=== PATIENT | male | born 1955 | race Caucasian/White ===

== ENCOUNTER 2016-09-05 13:24 | Emergency (ER) | payer OTHER ==
--- NOTE | 2016-09-05 15:27 | MRI REPORT ---
HISTORY: Low back pain, fever and urinary urgency. COMPARISON: None TECHNIQUE: Sagittal T1, sagittal T2, sagittal inversion recovery, axial T1 and axial T2 FINDINGS: There is 1 mm L4-L5 retrolisthesis and 2 mm L5-S1 anterolisthesis. There is no acute vertebral body f racture. There are chronic mild displaced bilateral L5 pars interarticularis defects. There are benig n hemangioma is in the L2 and L3 vertebral bodies. There is moderate T11-T12, mild T12-L1, moderate L 1-L2, moderate-severe L2-L3, mild L3-L4, mild L4-L5 and severe L5-S1 degenerative disc disease. The c onus medullaris is normal in position, terminating at the L2 level. T11-T12: There is a fused disc bulging and mild bilateral facet arthropathy resulting in mild-moderat e central canal stenosis. T12-L1: There is mild diffuse disc bulging and mild bilateral facet arthropathy. L1-L2: There is diffuse disc bulging, thickening of ligamentum flavum and mild-moderate bilateral fac et arthropathy resulting in mild central canal stenosis. L2-L3: There is diffuse disc bulging, thickening of ligamentum flavum and moderate bilateral facet ar thropathy resulting in mild right neural foraminal narrowing. L3-L4: There is diffuse disc bulging, thickening of ligamentum flavum and moderate bilateral facet ar thropathy resulting in mild-moderate right and mild left neural foraminal narrowing. L4-L5: There is diffuse disc bulging, thickening of ligamentum flavum and moderate-severe bilateral f acet arthropathy resulting in moderate bilateral neural foraminal narrowing. L5-S1: There is 2 mm anterolisthesis, diffuse disc bulging and moderate-severe bilateral facet arthro bernard resulting in severe bilateral neural foraminal narrowing. There are chronic mild displaced bila teral L5 pars interarticularis defects. IMPRESSION: 1. Chronic bilateral L5 spondylolysis resulting in grade 1 L5-S1 anterolisthesis including compressi on of the bilateral exiting L5 nerve roots. 2. Moderate degenerative changes including mild-moderate T11-T12 and mild L1-L2 central canal stenos is and multilevel moderate bilateral neural foraminal narrowing. Results were communicated to CHETAN GUZMAN MD at 09/05/2016 3:20 PM. Final Electronic Signature: This report was electronically signed by Rafael Rodriguez MD on 017 3:25 PM. macho /
--- NOTE | 2016-09-05 15:56 | ER PHYSICIAN DOCUMENTATION ---
Physician Documentation [facility] Name:Bo Leavitt Age:61 yrs Sex:Male :1955 Arrival Date:09/05/2016 Time:13:24 Bed4 Private MD: Ralf Grady Disposition: 09/05/16 15:31 Discharged to Home/Self Care. Impression: Acute Low Back Pain. - Condition is Fair. - Discharge Instructions: BACK PAIN (Acute or Chronic), BACK CARE TIPS, BACK EXERCISES, Lumbar. - Prescriptions for Prednisone 20 mg Oral Tablet - take 2 tablet by ORAL route once daily for 5 days; 10 tablet. Hydrocodone- Acetaminophen 5-325 mg Oral Tablet - take 1 tablet by ORAL route every 6 hours As needed; 20 tablet. - Medical Reconciliation form form. - Follow up: Private Physician; When: 2 - 3 days; Reason: Continuance of care. - Problem is new. - Symptoms are unchanged. HPI: 09/05 15:27 This 61 yrs old Male presents to ER via Private Vehicle with complaints of sc Abdominal Pain, Pain With Urination. 15:27 The patient presents with urinary symptoms, dysuria, urinary frequency. Onset: The sc symptom(s)/episode began/occurred 1 week(s) ago. The patient presents with pain that is acute. The symptoms are located in the low back. Onset: The symptoms/episode began/occurred at an unknown time. The pain radiates down both lower extremities. Associated signs and symptoms: Pertinent positives: bladder incontinence, urinary retention, frequency and dysuria and change in bowel with some constipation. Historical: - Allergies: pine nuts; - Home Meds: 1. valsartan oral 2. fenofibrate oral 3. Simvastatin Oral - PMHx: HIGH CHOLESTEROL; HYPERTENSION; - PSHx: CHOLECYSECTOMY; APPENDECTOMY; neck and back; - Tetanus: unknown. - Ebola Screening: : Patient negative for fever greater than or equal to 101.5 degrees Fahrenheit, and additional compatible Ebola Virus Disease symptoms. Patient denies exposure to infectious person. Patient denies travel to an Ebola-affected area in the 21 days before illness onset. No symptoms or risks identified at this time. . - Immunization history: Flu Vaccine unknown. - Social history: Smoking status: Patient states former smoker of tobacco. ROS: 15:28 Constitutional: Negative for fever, chills, and weight loss. sc Eyes: Negative for injury, pain, redness, and discharge. Neck: Negative for injury, pain, and swelling. Cardiovascular: Negative for chest pain, palpitations, and edema. Respiratory: Negative for shortness of breath, cough, wheezing, and pleuritic chest pain. Abdomen/GI: Negative for abdominal pain, nausea, vomiting, diarrhea, and constipation. 15:28 Skin: Negative for injury, rash, and discoloration. sc 15:28 Back: Positive for pain at rest, pain with movement, radiated pain. 15:28 : Positive for urinary frequency. 15:28 Neuro: Positive for tingling. Exam: Constitutional: This is a well developed, well nourished patient who is awake, alert, and in no acute distress. Head/Face: Normocephalic, atraumatic. Eyes: Pupils equal round and reactive to light, extra-ocular motions intact. Lids and lashes normal. Conjunctiva and sclera are non-icteric and not injected. Cornea within normal limits. Periorbital areas with no swelling, redness, or edema. Neck: Trachea midline, no thyromegaly or masses palpated, and no cervical lymphadenopathy. Supple, full range of motion without nuchal rigidity, or vertebral point tenderness. No meningismus. Chest/axilla: Normal chest wall appearance and motion. Nontender with no deformity. No lesions are appreciated. Cardiovascular: Regular rate and rhythm with a normal S1 and S2. No gallops, murmurs, or rubs. Normal PMI, no JVD. No pulse deficits. Abdomen/GI: Soft, non-tender, with normal bowel sounds. No distension or tympany. No guarding or rebound. No evidence of tenderness throughout. 15:29 Male : Normal genitalia with no discharge or lesions. sc 15:29 Back: pain, that is mild, ROM is painful, normal spinal alignment noted, CVA tenderness, is absent, vertebral tenderness, is appreciated at L4, L5 and sacrum, muscle spasm, is not present, Straight leg raises: pain bilaterally. 15:29 : CVA tenderness, is absent, Bladder: is normal. 15:29 Neuro: Sensation: numbness, that is mild, Gait: is steady, Deep tendon reflexes are 1 (trace) + in the right Achilles and left Achilles. Vital Signs: 13:50 BP 124 / 87; Pulse 92; Resp 14; Temp 98.1(O); Pulse Ox 94% on R/A; Weight 104.33 kg tg (R); Height 6 ft. (182.88 cm); Pain 7/10; 13:50 Body Mass Index 31.19 (104.33 kg, 182.88 cm) tg MDM: 13:55 Patient medically screened. fl 15:30 Differential diagnosis: ruptured disc, Scoliosis spinal injury. Data reviewed: vital sc signs, nurses notes, and as a result, I will discharge patient. Counseling: I had a detailed discussion with the patient and/or guardian regarding: the historical points, exam findings, and any diagnostic results supporting the discharge/admit diagnosis, the need for outpatient follow up, for a referral to a specialist. 09/05 15:29 Order name: LUMBAR SPINE W/O [id number]; Complete Time: 15:31 EDMS 09/05 15:31 Interpretation: Abnormal. fl 09/05 13:47 Order name: Urine Dip; Complete Time: 13:47 tg 09/05 13:47 Order name: Bladder Scan; Complete Time: 14:24 tg Dispensed Medications: No medications were administered Point of Care Testing: Urine Dip: 13:47 pH: 6; ; Specific [place]: 1.015; Ketones: Negative; Glucose: Negative; Protein: tg Negative; Leukocytes: Negative; Nitrite: Negative ; Blood: Negative; Bilirubin: Negative ; Urobilinogen: Normal Signatures: Bo Rucker RN RN Ralf Portillo MD MD fl
--- NOTE | 2016-09-05 15:56 | ER NURSING DOCUMENTATION ---
Nurse's Notes [facility] Name:Bo Leavitt Age:61 yrs Sex:Male :1955 Arrival Date:09/05/2016 Time:13:24 Bed4 Private MD: Diagnosis:Acute Low Back Pain Presentation: 09/05 13:27 Acuity: BRIELLE 3 tg 13:36 Presenting complaint: Patient states: Increased urinary frequency, possible retention. tg Pain in lower right back. cloudy urine. Transition of care: patient was not received from another setting of care. 13:36 Method Of Arrival: Private Vehicle tg Triage Assessment: 13:41 General: Appears uncomfortable, Behavior is cooperative, pleasant. Pain: Complains of tg pain in groin, lower back. Neuro: Level of Consciousness is awake, alert. Cardiovascular: Capillary refill < 3 seconds. GI: Last BM was September 05, 2016. Reports constipation. : Reports burning with urination urinary frequency. Derm: Skin is pink, warm & dry. Historical: - Allergies: pine nuts; - Home Meds: 1. valsartan oral 2. fenofibrate oral 3. Simvastatin Oral - PMHx: HIGH CHOLESTEROL; HYPERTENSION; - PSHx: CHOLECYSECTOMY; APPENDECTOMY; neck and back; - Tetanus: unknown. - Ebola Screening: : Patient negative for fever greater than or equal to 101.5 degrees Fahrenheit, and additional compatible Ebola Virus Disease symptoms. Patient denies exposure to infectious person. Patient denies travel to an Ebola-affected area in the 21 days before illness onset. No symptoms or risks identified at this time. . - Immunization history: Flu Vaccine unknown. - Social history: Smoking status: Patient states former smoker of tobacco. Screenin:11 Infectious Disease Risk Unable to Obtain. Abuse screen: Denies threats or abuse. Denies tg injuries from another. Nutritional screening: No deficits noted. Assessment: 14:11 GI: tg Vital Signs: 13:50 BP 124 / 87; Pulse 92; Resp 14; Temp 98.1(O); Pulse Ox 94% on R/A; Weight 104.33 kg tg (R); Height 6 ft. (182.88 cm); Pain 7/10; 13:50 Body Mass Index 31.19 (104.33 kg, 182.88 cm) tg ED Course: 13:26 Patient arrived in ED. ama 13:27 Triage completed. tg 13:36 Bo Rucker, MARCO is Primary Nurse. tg 13:55 Ralf Portillo MD is Attending Physician. nm 14:10 Arm band placed on. tg 14:11 Valuables Remains with patient. tg 14:50 Patient moved to MRI. ms 15:16 Patient moved back from MRI. ms Administered Medications: No medications were administered Point of Care Testing: Urine Dip: 13:47 pH: 6; ; Specific [place]: 1.015; Ketones: Negative; Glucose: Negative; Protein: tg Negative; Leukocytes: Negative; Nitrite: Negative ; Blood: Negative; Bilirubin: Negative ; Urobilinogen: Normal Outcome: 15:31 Discharge ordered by . nm 15:45 Discharged to home ambulatory. tg 15:45 Condition: unchanged 15:45 Discharge Assessment: Patient awake and alert. awake. 15:45 Instructed on discharge instructions, follow up and referral plans. medication usage, Prescriptions given X 2. 15:55 Patient left the ED. tg 09/06 13:45 Discharge F/U Call: Spoke with: spouse with permission of patient. Name: pt is [facility] pain. pt was instructed to take another norco and dose of prednisone. and wait 45 min and call back if pain was still unbearable. Signatures: Bo Rucker RN RN tg Twombly, Summer, RN RN st Chew, Scott, MD MD nm Betty Ventura Mark Nunez, Reg Reg ama
== END 2016-09-05 15:56 | disposition home or self-care (01) ==
LOC: ER 13:24
DX: M54.5 Low back pain (principal); R35.0 Frequency of micturition; R30.0 Dysuria; M79.604 Pain in right leg; M79.605 Pain in left leg; R20.0 Anesthesia of skin; R93.7 Abnormal findings on diagnostic imaging of other parts of musculoskeletal system; I10 Essential (primary) hypertension; Z79.899 Other long term (current) drug therapy
CPT/HCPCS: 72148; 99284